=== PATIENT | male | born 1955 | race Caucasian/White ===

== ENCOUNTER → 2018-02-08 | Outpatient (CLI) | payer OTHER | END | disposition home or self-care (01) | LOC: CFH 13:15 | PROVIDERS: ATTEND Family Medicine | DX: J44.9 Chronic obstructive pulmonary disease, unspecified (principal); R10.13 Epigastric pain; R13.10 Dysphagia, unspecified; C61 Malignant neoplasm of prostate; F17.200 Nicotine dependence, unspecified, uncomplicated; R63.4 Abnormal weight loss | CPT/HCPCS: 71046 ==

== ENCOUNTER 2018-08-09 12:06 | Day surgery (SDC) | payer OTHER ==
[2018-08-06 14:19] VITALS: BP 107/67
[~2018-08-09] VITALS: Ht 160 cm; Wt 65.0 kg
[~2018-08-09 12:06] MED LIST: TAMS-11 PO
[2018-08-09] MEDS ORDERED: SODIUM CHLORIDE 0.9% 1,000 ML IV SCH ×2 (13:28→15:50)
[2018-08-09] MEDS ORDERED: DIPHENHYDRAMINE 50 MG/ML, 1ML IVPush ONE (13:30)
[2018-08-09] MEDS ORDERED: TICAGRELOR 90 MG TABLET ONE (14:15)
[2018-08-09] MEDS ORDERED: MIDAZOLAM 1 MG/ML, 5ML ONE (14:15)
[2018-08-09] MEDS ORDERED: FENTANYL PF 100 MCG/2ML ONE (14:15)
[2018-08-09] MEDS ORDERED: HEPARIN 1,000 UNITS/ML, 10ML ONE (14:16)
[2018-08-09] MEDS ORDERED: VERAPAMIL 2.5 MG/ML, 2ML ONE (14:16)
[2018-08-09] MEDS ORDERED: BIVALIRUDIN 250 MG ONE (14:16)
[2018-08-09] MEDS ORDERED: LIDOCAINE-MPF 1%, 5ML ONE (14:16)
[2018-08-09] MEDS ORDERED: DIPHENHYDRAMINE 50 MG/ML, 1ML ONE (14:21)
[2018-08-09] MEDS ORDERED: SPIR25TA PO (16:15)
== END 2018-08-09 17:37 | disposition home or self-care (01) ==
LOC: CACL 12:06
PROVIDERS: ATTEND Internal Medicine Cardiovascular Disease
DX: I27.0 Primary pulmonary hypertension (principal); J44.9 Chronic obstructive pulmonary disease, unspecified; F17.210 Nicotine dependence, cigarettes, uncomplicated; Z88.8 Allergy status to other drugs, medicaments and biological substances
CPT/HCPCS: 93460; 99156; 99157; C1769; C1894; J1200; J1644; J2250; J3010; Q9967; J0583

== ENCOUNTER → 2020-03-04 | Outpatient (CLI) | payer OTHER ==
[~2020-03-04] MED LIST changes: +SPIR25TA PO
[2020-03-04 14:22] LABS: ANION GAP 6 mmol/L (5-15); CALCIUM 8.6 mg/dL (8.5-10.1); CHLORIDE 112 mmol/L (98-107); CREATININE 1.37 mg/dL (0.7-1.3)
== END | disposition home or self-care (01) ==
LOC: LAB 13:54
PROVIDERS: ATTEND Internal Medicine Cardiovascular Disease
DX: I27.21 Secondary pulmonary arterial hypertension (principal); I27.23 Pulmonary hypertension due to lung diseases and hypoxia; J44.9 Chronic obstructive pulmonary disease, unspecified; R06.02 Shortness of breath
CPT/HCPCS: 36415; 80048; 83880